=== PATIENT | female | born 1995 | race Caucasian/White ===

== ENCOUNTER 2016-09-24 14:54 | Emergency (ER) | payer BC ==
[~2016-09-24] VITALS: Ht 162.6 cm; Wt 60.6 kg
[~2016-09-24 14:54] MED LIST: AMPH30CA3 PO; BCPILLS PO; METO-157 PO; MIDO10TA PO; MULT-506 PO; PROP1TAB PO
[2016-09-24 14:57] VITALS: TEMP 36.9; Ht 162.6 cm; Wt 60.6 kg
--- NOTE | 2016-09-24 15:44 | DIAGNOSTIC IMAGING REPORT ---
CT HEAD WITHOUT CONTRAST (CT) CLINICAL HISTORY: Headache status post head trauma COMPARISON STUDY: No previous studies for comparison. TECHNIQUE: Axial CT of the brain is performed from the vertex to the skull base. IV contrast was not administered for this examination. CT DOSE: 537.48 mGy.cm FINDINGS: No intra or extra-axial mass lesions are visualized. There is no CT evidence of acute cortical infarction. There is no evidence of midline shift. There is no acute hemorrhage. No calvarial fractures are visualized. There is no evidence of pathologic ventricular dilatation. There are multiple opacified ethmoid air cells. There is mucosal thickening the sphenoid and frontal sinus. There is mild mucosal disease within the visualized portion left maxillary sinus. IMPRESSION: 1. Pansinus disease 2. No acute intracranial findings Electronically signed by: Jhonatan Franklin M.D. 09/24/2016 3:42 PM Dictated Date/Time: 09/24/2016 3:41 PM
[2016-09-24] MEDS ORDERED: ONDA4TAB46 PO (16:02)
[2016-09-24] MEDS ORDERED: AMOX500C3 PO (16:05)
--- NOTE | 2016-09-24 16:05 | EMERGENCY ROOM VISIT NOTE ---
ED Visit Note First contact with patient: 15:05 Chief Complaint: Head Injury History of Present Illness: Patient is a 21-year-old female who presents to the records from this afternoon for evaluation after sustaining a head injury last evening. She reports that she is been ill with upper respiratory symptoms over the last few days. She has had fevers as well as a cough and his congestion. Last evening, she reports that she was in her kitchen when she reportedly passed out. She does report a history of POT syndrome, but is uncertain if this is what had occurred. She reports that her illness overall has been much better today. She's had no fevers. There is been no chest pain, palpitations, short of breath, or lightheadedness. She rates her current discomfort as a 5/ 10. She complains of a posterior headache with some mild vision changes. She reports some mild neck pain. She denies any slurred speech, facial droop, unilateral weakness/numbness, chest pain, abdominal pain, or back pain. Medications: Reviewed and discussed with the patient. Allergies: Duloxetine PMH: POTS syndrome SHx: Patient is a 21-year-old female [employer] student who lives with roommates. ROS: All pertinent positive and negative review of systems are appropriately documented in the History of Present Illness. Physical Exam: VITAL SIGNS - Vital signs and nursing notes were reviewed. GENERAL - 21-year-old female appearing her stated age. Communicates well with provider and answers questions appropriately. HEAD - Normocephalic, Atraumatic. No Baez's Sign or Raccoon's Eyes. No depressed skull fractures palpable. EYES - PERRL with EOMI bilaterally. Without subconjunctival hemorrhage. Palpebral conjunctiva pink and moist with no injection. EARS - No deformities of external structures noted on gross examination bilaterally. No hemotympanum present. No tympanic perforation noted. Handle of malleus, umbo, cone of light, pars tensa/flaccid all easily visualized. NOSE - Midline and without cyanosis. No epistaxis or clear watery discharge noted. Septum midline without deviation. No septal hematoma noted. No overlying ecchymosis noted. MOUTH/OROPHARYNX - Without perioral cyanosis. Tongue midline with equal elevation of palate bilaterally. No blood noted in the oropharynx. No tonsillar hypertrophy, erythema, or exudates noted. No dental fractures noted. NECK - FROM assessed. No nuchal rigidity. No tenderness to palpation over the cervical spinous processes. No cervical paraspinal muscle tenderness noted. LUNGS - Chest wall symmetric without accessory muscle use, intercostals retractions, or central cyanosis. Normal vesicular breath sounds CTA B/L. No wheezes, rales, or rhonchi appreciated. CARDIAC - RRR with S1/S2. No murmur, rubs, or gallops appreciated. EXTREMITIES - No gross deformities noted of the extremities. +5/5 strength noted in UE/LE bilaterally. NEUROLOGIC - Cranial nerves II through XII grossly intact. Sensory intact to light touch throughout. Patellar reflexes +2/4. Patient able to perform rapid alternating movements appropriately. PSYCH - A&Ox3 and cooperates fully with examiner. Pt is very pleasant and interacts well with examiner. IMAGING: CT HEAD WITHOUT CONTRAST (CT) CLINICAL HISTORY: Headache status post head trauma COMPARISON STUDY: No previous studies for comparison. TECHNIQUE: Axial CT of the brain is performed from the vertex to the skull base. IV contrast was not administered for this examination. CT DOSE: 537.48 mGy.cm FINDINGS: No intra or extra-axial mass lesions are visualized. There is no CT evidence of acute cortical infarction. There is no evidence of midline shift. There is no acute hemorrhage. No calvarial fractures are visualized. There is no evidence of pathologic ventricular dilatation. There are multiple opacified ethmoid air cells. There is mucosal thickening the sphenoid and frontal sinus. There is mild mucosal disease within the visualized portion left maxillary sinus. IMPRESSION: 1. Pansinus disease 2. No acute intracranial findings ED Course: Patient was seen and evaluated by myself. CT the head was obtained. Imaging results above. Imaging results were reviewed with the patient who acknowledges understanding. Patient does complain of ongoing sinus congestion past 2 weeks. She has no fever, however given the findings on CT consistent with pansinusitis, I did elect to treat the patient with amoxicillin. The patient will follow-up with [facility] from today's visit. She will return for any change or worsening symptoms. Patient discharged home afebrile and in good condition. In the evaluation and treatment of this patient, the following differential diagnoses were considered: Concussion, Contrecoup Injury, Brain Tumor, Depression, Encephalitis, Hypothyroidism, Meningitis, CVA, TIA, Migraine, Cluster Headache, Intracranial Abnormality, Intracranial Hemorrhage, Subdural Hematoma, Subarachnoid Hemorrhage, Hydrocephalus. Given the patient's presentation and stated complaints, I did elect to perform the above-mentioned workup. The patient presents today after sustaining a head injury last evening. She reportedly passed out. She felt much better today and has not had any of breath or symptoms to this point. She does have a history of pots syndrome and I'm suspicious that this is what had occurred. She has no symptoms at this point. She is not tachycardic. She is not tachypnea. She is not hypoxic. I do not feel that labs are necessary at this point. CT the head is unremarkable. She was found have pansinusitis and a fungus of the past 2 weeks, she will be treated for this. She is not having concussion. She is no focal neurological deficits. Her exam is otherwise unremarkable. Patient will follow-up [facility] or return for any change or worsening symptoms. Patient discharged home in good condition. Impression: Closed Head Injury - Concussion, Sinusitis Discharge Instructions: You have been treated in the Emergency Department for a Closed Head Injury - Concussion. You have also been diagnosed with sinusitis (sinus infection). CT Scan of your head/brain demonstrated no acute bleeding or other abnormalities. This does not completely rule out the risk for future damage to the brain. You were prescribed Amoxicillin to be taken as prescribed. This is an antibiotic. All antibiotics have the potential to cause diarrhea. Stop this medication and contact a medical provider if you were to develop any significant adverse side effects including: wheezing, shortness of breath, passing out, vomiting, or a diffuse rash. Always take antibiotics as directed and COMPLETE the ENTIRE course regardless of the improvement of your symptoms. For pain control, you can use the following [id number]-diamimu medicines (if >12 yo): - Regular strength (325mg/tab) Tylenol (acetaminophen) 2 tabs every 4-6 hours as needed. Do not exceed 12 tablets in a 24 hour period. Avoid taking more than 4 grams (4000 mg) of Tylenol per day. This includes any other sources of acetaminophen you may take on a regular basis. - Regular strength (200 mg/tab) Advil (ibuprofen) 1-2 tabs every 4-6 hours as needed. Do not exceed a dose of 3200 mg per day. You should relax in a quiet, dark place for the rest of the day. Avoid any possible triggers including: cigarette smoke, caffeine, nicotine, chocolate, wine, beer, loud noises or music, or bright lights. You should schedule a follow-up appointment in 2-3 days with your Primary Care Provider or established Neurologist for further evaluation and treatment of your Headache. You should NOT return to athletic play until reevaluated by your Past Due Accounts Clerk. You should fully comply with their standard protocol regarding head injuries. Your Past Due Accounts Clerk OR Primary Care Provider will have the final say in your return to athletic play. This timeframe should be AT LEAST 1 week AFTER the date of last symptoms experienced! This is ESSENTIAL to allow for adequate brain healing time and for reduced risk of re-injury. Return to the Emergency Department if your current symptoms worsen despite treatment course outlined above, or if you develop any of the following symptoms : intractable pain despite aforementioned treatment course, visual disturbances , loss of vision, unilateral weakness or facial drooping, slurring of speech, loss of coordination, or loss of consciousness. Problem List Medical Problems: (1) Arthritis Status: Chronic (2) Dysautonomia Status: Chronic (3) POTS (postural orthostatic tachycardia syndrome) Status: Chronic (4) Shoulder capsulitis Status: Resolved Current/Historical Medications Scheduled Amoxicillin (Amoxil), 500 MG PO TID Amphetamine-Dextroamphetamine 30MG (Adderall Xr 30MG), 30 MG PO DAILY Control Pills ( Control Pills), 1 TAB PO DAILY Metoclopramide (Reglan), 10 MG PO Q6H Midodrine Hcl (Midodrine Hcl), 10 MG PO TID Multivitamin (Multivitamin), 1 TAB PO DAILY Propranolol (Inderal), 60 MG PO BID Scheduled PRN Ondansetron Hcl (Zofran), 4 MG PO Q6 PRN for Nausea Allergies Coded Allergies: Duloxetine (Unverified Allergy, Unknown, ., 09/24/16) Vital Signs Date Time Temp Pulse Resp B/P Pulse Ox O2 Delivery O2 Flow Rate FiO2 09/24/16 16:14 77 20 122/77 100 09/24/16 14:57 36.9 72 18 119/86 99 Room Air Departure Information Impression Primary Impression: Closed head injury Additional Impressions: Concussion Sinusitis Dispostion Home / Self-Care Condition GOOD Prescriptions Amoxicillin (AMOXIL) 500 Mg Cap 500 MG PO TID for 10 Days, #30 CAP Prov: Raul Clark PA-C 09/24/16 Referrals No Doctor, Assigned (PCP) Patient Instructions ED Concussion, ED Sinusitis Abx Pedrito, [facility] Additional Instructions You have been treated in the Emergency Department for a Closed Head Injury - Concussion. You have also been diagnosed with sinusitis (sinus infection). CT Scan of your head/brain demonstrated no acute bleeding or other abnormalities. This does not completely rule out the risk for future damage to the brain. You were prescribed Amoxicillin to be taken as prescribed. This is an antibiotic. All antibiotics have the potential to cause diarrhea. Stop this medication and contact a medical provider if you were to develop any significant adverse side effects including: wheezing, shortness of breath, passing out, vomiting, or a diffuse rash. Always take antibiotics as directed and COMPLETE the ENTIRE course regardless of the improvement of your symptoms. For pain control, you can use the following [id number]-pzjcudf medicines (if >12 yo): - Regular strength (325mg/tab) Tylenol (acetaminophen) 2 tabs every 4-6 hours as needed. Do not exceed 12 tablets in a 24 hour period. Avoid taking more than 4 grams (4000 mg) of Tylenol per day. This includes any other sources of acetaminophen you may take on a regular basis. - Regular strength (200 mg/tab) Advil (ibuprofen) 1-2 tabs every 4-6 hours as needed. Do not exceed a dose of 3200 mg per day. You should relax in a quiet, dark place for the rest of the day. Avoid any possible triggers including: cigarette smoke, caffeine, nicotine, chocolate, wine, beer, loud noises or music, or bright lights. You should schedule a follow-up appointment in 2-3 days with your Primary Care Provider or established Neurologist for further evaluation and treatment of your Headache. You should NOT return to athletic play until reevaluated by your Past Due Accounts Clerk. You should fully comply with their standard protocol regarding head injuries. Your Past Due Accounts Clerk OR Primary Care Provider will have the final say in your return to athletic play. This timeframe should be AT LEAST 1 week AFTER the date of last symptoms experienced! This is ESSENTIAL to allow for adequate brain healing time and for reduced risk of re-injury. Return to the Emergency Department if your current symptoms worsen despite treatment course outlined above, or if you develop any of the following symptoms : intractable pain despite aforementioned treatment course, visual disturbances , loss of vision, unilateral weakness or facial drooping, slurring of speech, loss of coordination, or loss of consciousness. Problem Qualifiers Primary Impression: Closed head injury Encounter type: initial encounter Qualified Codes: S09.90XA - Unspecified injury of head, initial encounter Additional Impressions: Concussion Encounter type: initial encounter Loss of consciousness presence/duration: with LOC of unspecified duration Qualified Codes: S06.0X9A - Concussion with loss of consciousness of unspecified duration, initial encounter Sinusitis Sinusitis location: pansinusitis Chronicity: acute Recurrence: non- recurrent Qualified Codes: J01.40 - Acute pansinusitis, unspecified
[2016-09-24 16:14] VITALS: BP 122/77; PULSE 77; O2SAT 100
== END 2016-09-24 16:15 | disposition home or self-care (01) ==
LOC: C.EDB 14:55 → C.EDD 16:15
DX: S09.90XA Unspecified injury of head, initial encounter (principal); S06.0X9A Concussion with loss of consciousness of unspecified duration, initial encounter; J01.40 Acute pansinusitis, unspecified; M19.90 Unspecified osteoarthritis, unspecified site; G90.1 Familial dysautonomia [Riley-Day]; I49.5 Sick sinus syndrome; W18.30XA Fall on same level, unspecified, initial encounter; Y92.010 Kitchen of single-family (private) house as the place of occurrence of the external cause